=== PATIENT | female | born 1975 | race Caucasian/White ===

== ENCOUNTER → 2023-05-02 06:37 | Day surgery (SDC) | payer BC, SELFPAY ==
[2023-05-02 08:40] VITALS: BMI 46.7
[2023-05-02 08:43] VITALS: BMI 46.7
[2023-05-02 08:51] VITALS: BP 173/98
== END ==
LOC: SDS 06:37
PROVIDERS: ATTENDING PHYSICIAN Internal Medicine
DX: K62.5 Hemorrhage of anus and rectum (principal); K64.8 Other hemorrhoids; D12.3 Benign neoplasm of transverse colon; K62.1 Rectal polyp; R12 Heartburn; K44.9 Diaphragmatic hernia without obstruction or gangrene; K22.89 Other specified disease of esophagus; K31.89 Other diseases of stomach and duodenum; K20.80 Other esophagitis without bleeding; K57.30 Diverticulosis of large intestine without perforation or abscess without bleeding
CPT/HCPCS: 45385; 45380; 43239; 88305; 88342

== ENCOUNTER → 2023-07-17 08:00 | Outpatient (REF) | payer BC, SELFPAY ==
--- NOTE | 2023-07-17 11:46 | PN.DIAED02 ---
Referral
Referred For: Medical Nutrition Therapy, Self-Blood Glucose Monitoring
PHI Release Authorization Form Signed: Yes
Patient Problems:
Current Active Problems
Problem Status Onset
Type 2 diabetes mellitus
Demographic
(1) Type 2 diabetes mellitus
Status: Acute Code(s): E11.9 - Type 2 diabetes mellitus without complications
Patient's primary language-: Greenlandic
Glycemic Control
- Blood Glucose Monitoring Assessment
Date: 07/17/23
Blood glucose monitoring at home: No
Monitor Brands: [employer] (provided with a Contour Next Gen)
Frequency: 2x per day
Time: fasting, after breakfast, after lunch, after dinner
- Hemoglobin A1c
Date: 07/09/23
A1C Percentage (%): 7.1
Care Plan
- Education Needs
Patient Education Needs: Monitoring, Physical activity, Nutritional management
Recommended Diabetes Training Program based on assessment: Individual Appointment
- Plan of Care
Plan of Care:
Candis seen today for a 'holdover' visit. Newly diagnosed with T2DM, A1C 7.1%, father and aunt w/hs T2DM. No medications at this time as she is waiting approval for [facility]. Provided with and instructions given on the Contour NExt Gen glucometer,
result 182 mg/dl- 1hr post breakfast. She is aware of proper testing technique, testing pattern (as written on handout provided), testing sites and expected results. Initially apprehensive about testing, she felt okay once completed. Discussed her
breakfast which included large bagel w/ cream cheese and water. Discussed adding protein to bagel (egg, peanut butter), and reducing to 1/2 bagel with some fruit for more nutrition. Reviewed macronutrients and impact each plays on glucose
metabolism. Discussed reading food labels, identifying total CHO and portion control. Discussed some mindful eating strategies. 5'3 1/2 in, 272#, provided with 1800 shalini ADA meal plan. She states she often skips breakfast, discussed importance of
eating 3 meals to keep body metabolizing. States she does not often snack, it is okay not to have the snack but she may not add that CHO to the next meal. She does not exercise, works from home and may take a walk at lunch. Most dinners are take out
due to busy schedule of 10 yr old and 5 yr old son. Encourage food prep on the weekend to help reduce number of take out days. She does not like vegetable nor salad and is not receptive to adding them to her meals. Information on outpt ed classes as
well as phone number for any follow up questions. She is aware to call her PCP and ask them to fax demographic info and brand of glucometer (Contour Next Gen) and testing schedule to [facility]. Fax number provided. A rep from [employer] should then contact Candis.
== END ==
LOC: DES 08:00
PROVIDERS: ATTENDING PHYSICIAN Physician Assistant Medical
DX: O24.419 Gestational diabetes mellitus in pregnancy, unspecified control (principal)
CPT/HCPCS: 99078

== ENCOUNTER → 2023-10-25 08:09 | Outpatient (REF) | payer BC, SELFPAY | LOC: HWWDC 08:09 | PROVIDERS: ATTENDING PHYSICIAN Obstetrics & Gynecology; FAMILY PHYSICIAN Physician Assistant Medical | DX: Z12.31 Encounter for screening mammogram for malignant neoplasm of breast (principal) | CPT/HCPCS: 77063; 77067 ==

== ENCOUNTER 2024-04-15 15:17 | Emergency (ER) | payer BC, SELFPAY ==
[2024-04-15 15:37] VITALS: BP 148/99
[2024-04-15 16:05] LABS: % Basophils 0.4 % (0-2); % Eosinophils 1.6 % (0-6); % Immature Granulocytes 0.2 % (0-0.5); % Lymphocytes 30.4 % (20.5-51.1); % Monocytes 4.6 % (1.7-9.3); % Neutrophils 62.8 % (42.2-75.2); Absolute Eosinophils 0.2 10^3/uL (0-0.7); Absolute Lymphocytes 2.9 10^3/uL (1.2-3.4); Absolute Monocytes 0.4 10^3/uL (0.1-0.6); Absolute Neutrophils 5.9 10^3/uL (1.4-6.5); Hematocrit 43.9 % (37.0-47.0); Hemoglobin 14.1 g/dL (12.0-16.0); Mean Corp Hgb Conc. 32.1 g/dL (33.0-37.0); Mean Corpuscular Hgb 27.7 pg (27.0-31.0); Mean Corpuscular Volume 86.2 fL (81.0-99.0); Mean Platelet Volume 9.4 fL (7.4-10.4); Nucleated Red Blood Cells % 0 %; Platelet Count 257 10^3/uL (130-400); Red Blood Cell Count 5.09 10^6/uL (4.20-5.40); White Blood Cell Count 9.5 10^3/uL (4.8-10.8)
[2024-04-15 16:13] LABS: HCG, Serum Qualitative Screen Negative; INR 0.94; PT 12.9 Sec (11.4-14.6)
[2024-04-15 16:14] LABS: APTT 38.3 Sec (23.4-35.0)
--- NOTE | 2024-04-15 16:14 | ED.GENMED ---
ED Provider Triage
<Ranjan Albrecht PA-C - Last Filed: 04/15/24 16:19>
-
Patient seen by provider in Triage?: Seen in Triage
Attestation: A medical screening examination has been initiated by a qualified medical provider. Based on the assessment performed at this time, it has been determined that an emergent medical condition may exist and the patient has been informed
that further medical evaluation and possible additional diagnostic testing may be needed.
HPI: 48-year-old female presents for evaluation of persistent headache for several weeks associated with left facial paresthesias and transient visual abnormalities, notes that last night she had an episode where she lost vision in the central port
of her eyes for approximately 10 to 15 seconds, sounds more like a scotoma than true visual loss. No dizziness or extremity paresthesias at this time
GENERAL: Alert , in no apparent distress
EYE: No visual abnormalities.
NECK: Trachea midline
ENT: No visible abnormalities.
LUNGS: No acute respiratory distress
NEUROLOGICAL: Alert and oriented, cranial nerves II through XII grossly intact, no extremity motor deficits, normal [id number]
SKIN: Skin intact. No visible changes.
MUSCULOSKELETAL: Moving extremities normally
PSYCH: Normal and appropriate interaction.
This is a medical evaluation conducted in person to initiate diagnostic evaluation and provide initial therapeutics. Please see further documentation by the treating clinician.
History of Present Illness
<Ranjan Albrecht PA-C - Last Filed: 04/15/24 16:19>
General
Chief Complaint: Numbness
Time Seen by Provider: 04/15/24 18:15
<Chalo Denis DO - Last Filed: 04/15/24 23:11>
History of Present Illness
History of Present Illness:
39-year-old female presents Emergency Department due to left eye twitching Sunday, about 15 seconds vision change. Agree with HPI by provider in triage. Reports mild headache at this time
Past History
<Ranjan Albrecht PA-C - Last Filed: 04/15/24 16:19>
Past History
ED Past Medical History: GERD
ED Past Surgical History: Other (Lithotripsy)
Social History
Tobacco: Non-smoker
Alcohol: None
Drug: None
Personal:
Living: with family
Employment: Employed
Family History
Family History: Other
Phy Exam
<Chalo Denis DO - Last Filed: 04/15/24 23:11>
Physical Exam
Physical Exam:
Physical Exam
General: no apparent distress, not acutely ill
Neck: supple. no meningeal signs. normal posterior pharynx
Heart: s1/s2 regular rate and rhythm, no murmur. equal radial
pulses.
HEENT: Pupils equal round reactive to light, EOMI
Lungs: no acute respiratory distress. clear bilaterally
Abdomen: normal bowel sounds. not tender. no CVAT
Neuro: alert and oriented. no focal neurological deficits cranial nerves II through XII intact
Skin: no rash
Psychiatric: well kept. interactive and cooperative
Extremities: no edema. no calf tenderness. negative homans. good distal pulses
Course
<Ranjan Albrecht PA-C - Last Filed: 04/15/24 16:19>
Orders/Labs/Results
Orders:
Orders
04/15/24 15:41
Electrocardiogram (*1) Urgent
Reason for Study: Other
Other Reason for Exam: Possible Stroke
04/15/24 15:[address] [CT Head W/o Iv Contrast] Urgent
Comment:
Reason For Exam: numbness to L face, visual disturbance
EKG- Treatment ONCE
Test Result ONCE
04/15/24 15:49
Complete Blood Count/With Diff Urgent
Comprehensive Metabolic Panel Urgent
HCG, Serum Qualitative Screen Urgent
Comment: Notify provider if positive test present
PTT Urgent
Prothrombin Time Urgent
Troponin I Urgent
Abnormal Lab Results
04/15/24
15:49
MCHC 32.1 L g/dL
(33.0-37.0)
APTT 38.3 H Sec
(23.4-35.0)
Glucose 103 H mg/dl
(70-99)
04/15/24 15:49
04/15/24 15:49
Vital Signs
Initial and Last Documented VS:
Initial Vital Signs
Temp Pulse Resp BP Pulse Ox
98.4 F 86 18 148/99 99
04/15/24 15:37 04/15/24 15:37 04/15/24 15:37 04/15/24 15:37 04/15/24 15:37
Last Documented Vital Signs
Temp Pulse Resp BP Pulse Ox
97.9 F 82 18 132/92 99
04/15/24 17:59 04/15/24 19:16 04/15/24 19:16 04/15/24 19:16 04/15/24 19:16
<Chalo Denis, DO - Last Filed: 04/15/24 23:11>
Orders/Labs/Results
Orders:
Orders
04/15/24 15:41
Electrocardiogram (*1) Urgent
Reason for Study: Other
Other Reason for Exam: Possible Stroke
04/15/24 15:[address] [CT Head W/o Iv Contrast] Urgent
Comment:
Reason For Exam: numbness to L face, visual disturbance
EKG- Treatment ONCE
Test Result ONCE
04/15/24 15:49
Complete Blood Count/With Diff Urgent
Comprehensive Metabolic Panel Urgent
HCG, Serum Qualitative Screen Urgent
Comment: Notify provider if positive test present
PTT Urgent
Prothrombin Time Urgent
Troponin I Urgent
Abnormal Lab Results
04/15/24
15:49
MCHC 32.1 L g/dL
(33.0-37.0)
APTT 38.3 H Sec
(23.4-35.0)
Glucose 103 H mg/dl
(70-99)
04/15/24 15:49
04/15/24 15:49
Vital Signs
Initial and Last Documented VS:
Initial Vital Signs
Temp Pulse Resp BP Pulse Ox
98.4 F 86 18 148/99 99
04/15/24 15:37 04/15/24 15:37 04/15/24 15:37 04/15/24 15:37 04/15/24 15:37
Last Documented Vital Signs
Temp Pulse Resp BP Pulse Ox
97.9 F 82 18 132/92 99
04/15/24 17:59 04/15/24 19:16 04/15/24 19:16 04/15/24 19:16 04/15/24 19:16
<Chalo Denis, DO - Last Filed: 04/15/24 23:11>
MDM/Problems Addressed
Differential Diagnosis Includes:
CVA, TIA, migraine
MDM/Problems Addressed:
48-year-old female with likely migraine, atypical. Doubt CVA or TIA. Stable for discharge. Follow-up with primary care. Return precautions given.
Chronic conditions affecting care: HTN and Asthma
<Chalo Denis, DO - Last Filed: 04/15/24 23:11>
*Radiology
Radiology exam reviewed: radiology read reviewed (ct head nad)
*Pulse Oximetry
Patient hypoxic: no
*EKG
Interpreted by ED Provider?: Yes
EKG Intrepretation Date: 04/15/24
EKG Intrepretation Time: 15:51
Interpretation: normal
Comparison EKG: no changes
Heart Rate: 81
Rate: normal
Rhythm: sinus
[place]burn: normal axis
Interval: normal interval
QRS Pattern: normal QRS
Ischemia: no ischemia
*Private Branch Exchange Operator Interpretation
Rate: Private Branch Exchange Operator- N/A
*Critical Care Note
Total Time (30-74mins, 75-104mins- exclusive of procedures): Not Applicable
Data Reviewed
Prescriptions/Medications Considered But Not Given:
tPA not indicated
<Chalo Denis, - Last Filed: 04/15/24 23:11>
Patient Management
Social determinants of health affecting care: Living situation and Strong social support
Escalation/DeEscalation of care consider admission/obs:
Admit not indicated
ED Attending Note
<Ranjan Albrecht PA-C - Last Filed: 04/15/24 16:19>
-
Portions of this chart may have been created with voice recognition software.� Occasional wrong word or��sound alike� substitutions may have occurred due to the inherent limitations of voice recognition software.
Discharge Plan
Departure
Patient Disposition: Home (Routine Discharge)
Date of Disposition: 04/15/24
Time of Disposition: 19:02
Patient with high blood pressure during this ER visit?: Yes
Condition: Good
Discharge Problem:
Headache
Instructions: Paresthesia (DC), Headaches in adults, BLOOD PRESSURE
Prescriptions:
No Action
multivitamin Tablet
1 tab PO DAILY
omeprazole 40 mg Capsule,Delayed Release(Dr/Ec)
40 mg PO DAILY
alprazolam 0.25 mg Tablet
0.25 mg PO BID PRN (Reason: anxiety)
prednisone 1 mg Tablet
20 mg PO DAILY
Rx Instructions:
taper
albuterol 90 mcg/actuation Aerosol
INHALATION PRN (Reason: sob)
cholecalciferol (vitamin D3) [Vitamin D3] 25 mcg (1,000 unit) Capsule
2,000
bupropion HCl 300 mg Tablet Extended Release 24 Hr
300 mg PO DAILY
budesonide-formoterol [Symbicort] 80-4.5 mcg/actuation Hfa Aerosol Inhaler
2 puff INHALATION BID
Referrals:
Rocío [place] PA-C [Family Provider] - Call in 1-3 days for appt
Interventions
Interventions:
*Risk Screen - Suicide Last Done: 04/15/24 15:37
*General Assessment Last Done: 04/15/24 15:37
*Neglect/Abuse Screening Last Done: 04/15/24 15:37
*ED COVID-19 Vaccine History Last Done: 04/15/24 15:37
*Nursing Disposition Last Done: 04/15/24 19:16
ED- Neurological Assessment Last Done: 04/15/24 18:23
Discharge Date and Time
Discharge Date/Time: 04/15/24 19:17
Print Language: AMHARIC
[2024-04-15 16:16] LABS: ALT (SGPT) 19 U/L (0-35); AST (SGOT) 19 U/L (14-36); Albumin 4.7 g/dl (3.5-5.0); Alkaline Phosphatase 126 U/L (38-126); Blood Urea Nitrogen 17 mg/dl (7-17); Calcium 9.8 mg/dl (8.4-10.2); Carbon Dioxide 28 mmol/L (22-30); Chloride 101 mmol/L (98-107); Glucose 103 mg/dl (70-99); Potassium 4.5 mmol/L (3.5-5.1); Sodium 138 mmol/L (135-145); Total Bilirubin 0.7 mg/dl (0.2-1.3); Total Protein 6.9 g/dl (6.3-8.2); eGFR > 60.00
[2024-04-15 16:27] LABS: Troponin I < 0.012 ng/ml
[2024-04-15 17:59] VITALS: BP 139/96
[2024-04-15 19:16] VITALS: BP 132/92
== END 2024-04-15 19:17 | disposition home or self-care (01) ==
LOC: EMR 15:17
PROVIDERS: Emergency Medicine; EMERGENCY PHYSICIAN Emergency Medicine; FAMILY PHYSICIAN Physician Assistant Medical
DX: R51.9 Headache, unspecified (principal); H54.7 Unspecified visual loss; R20.0 Anesthesia of skin; I10 Essential (primary) hypertension; J45.909 Unspecified asthma, uncomplicated; K21.9 Gastro-esophageal reflux disease without esophagitis; Z88.1 Allergy status to other antibiotic agents; Z88.2 Allergy status to sulfonamides; Z88.8 Allergy status to other drugs, medicaments and biological substances
CPT/HCPCS: 99284; 70450; 80053; 84484; 84703; 85025; 85610; 85730; 93005

== ENCOUNTER → 2024-06-20 08:54 | Outpatient (REF) | payer BC, SELFPAY | LOC: RAD 08:54 | PROVIDERS: ATTENDING PHYSICIAN Psychiatry & Neurology Neurology; FAMILY PHYSICIAN Physician Assistant Medical | DX: R20.0 Anesthesia of skin (principal); R20.2 Paresthesia of skin | CPT/HCPCS: 70496; 70498; Q9967 ==

== ENCOUNTER → 2024-11-18 08:05 | Outpatient (REF) | payer BC, SELFPAY | LOC: HWWDC 08:05 | PROVIDERS: ATTENDING PHYSICIAN Obstetrics & Gynecology; FAMILY PHYSICIAN Physician Assistant Medical | DX: Z12.31 Encounter for screening mammogram for malignant neoplasm of breast (principal) | CPT/HCPCS: 77063; 77067 ==

== ENCOUNTER → 2025-01-02 16:43 | Outpatient (REF) | payer BC, SELFPAY | LOC: CLAB 16:43 | PROVIDERS: ATTENDING PHYSICIAN Otolaryngology | DX: K11.20 Sialoadenitis, unspecified (principal); M35.00 Sjogren syndrome, unspecified | CPT/HCPCS: 88305 ==